=== PATIENT | male | born 1945 ===

== ENCOUNTER 2016-12-05 11:27 | Outpatient (CLI) ==
[2016-12-05 12:25] LABS: PROTHROMBIN TIME 44.4 SEC (9.3-11.0)
== END 2016-12-05 11:28 | disposition home or self-care (01) ==
LOC: NONPT 11:27
PROVIDERS: ATTEND Orthopaedic Surgery
DX: Z51.81 Encounter for therapeutic drug level monitoring (principal); Z79.01 Long term (current) use of anticoagulants; Z47.1 Aftercare following joint replacement surgery
CPT/HCPCS: 85610